=== PATIENT | female | born 1980 | race Caucasian/White ===

== ENCOUNTER 2019-10-23 01:21 | Day surgery (SDC) | payer OTHER, SELFPAY ==
[2019-10-22 15:08] VITALS: BMI 29.7
[2019-10-23 08:49] VITALS: BP 127/63; PULSE 79; RESP 16; TEMP 36.6; O2SAT 99
[2019-10-23] MEDS: LACTATED RINGERS 1,000 ML 30 ML IV CONT (08:55)
--- NOTE | 2019-10-23 08:57 | WPDANESEPPF ---
Anes - Initial Pre Proc Eval Procedure: Operation Date: 10/23/19 10:00 Proposed Procedures p Suction Dilation And Curettage - Mark Lund MD Date/Time: 10/23/19 08:57 Surgeon: Mark Lund MD Pre Op Diagnosis: Missed AB Patient Data Age: 39 Gender: F Height: 5 ft 4 in Weight: 78 kg Allergies Allergy/AdvReac Type Severity Reaction Status Date / Time No Known Allergies Allergy Verified 10/23/19 08:29 Home Medications Medication Instructions Recorded Confirmed Type diphenhydramine HCl [Benadryl] 25 mg PO DIRECTED PRN 10/22/19 10/23/19 History multivitamin 1 tablet PO DAILY PRN 10/22/19 10/23/19 History omeprazole 20 mg PO DAILY 10/22/19 10/23/19 History promethazine 12.5 mg PO Q6H PRN 10/23/19 10/23/19 History Patient hx anesthesia problems: none Family hx anesthesia problems: none PMFSH Past Medical History Medical History Anxiety GERD (gastroesophageal reflux disease) Hx of migraines Anes - Eval Final PreProcedure Day of Procedure 10/23/19 08:57 Patient weight: overweight Lungs: clear to auscultation Airway: Mallampati scale class II Neurological: alert and oriented Last oral intake: >/= 8 hours ASA classification: II Emergent: no Anesthetic plan: proceed Anesthesia type and monitoring: general GIVS and standard monitoring Informed Consent: The patient's anesthetic plan and its attendant risks and benefits were discussed with the patient/family/POA. Questions were solicited and answers provided to the satisfaction of the patient/family/POA.
--- NOTE | 2019-10-23 09:35 | P.HP_ITS ---
H&P: HPI History of Present Illness Chief complaint: Missed AB Narrative: 39 y/o with poor embryo growth and no FHR on ultrasound despite hcg level 35,000. No vaginal bleeding. Desires surgical intervention. Review of Systems Review of Systems: All systems reviewed & are unremarkable except as noted in HPI and below [facility] Past Medical History Medical History Anxiety GERD (gastroesophageal reflux disease) Hx of migraines Meds Home Medications and Allergies Home Medications Medication Instructions Recorded Confirmed Type diphenhydramine HCl [Benadryl] 25 mg PO DIRECTED PRN 10/22/19 10/23/19 History multivitamin 1 tablet PO DAILY PRN 10/22/19 10/23/19 History omeprazole 20 mg PO DAILY 10/22/19 10/23/19 History promethazine 12.5 mg PO Q6H PRN 10/23/19 10/23/19 History Allergies Allergy/AdvReac Type Severity Reaction Status Date / Time No Known Allergies Allergy Verified 10/23/19 08:29 Vital Signs Vital Signs - 24 hr 10/23/19 08:49 Temperature 36.6 C Pulse Rate 79 Respiratory Rate 16 Blood Pressure 127/63 Pulse Oximetry 99 Exam Const: General: comfortable and no acute distress Neck: Neck: supple Thyroid: thyroid normal Resp: Effort & Inspection: normal respiratory effort Auscultation: clear to auscultation bilaterally Cardio: Rate: regular rate Rhythm: regular rhythm GI: GI Palp: Yes Soft to palpation Other: nontender, nondistended : Other: Deferred to OR Skin: General skin exam: normal color and no rashes or lesions noted Extrem: Other: Nontender, no edema Assessment and Plan Assessment and plan (1) Missed : Code(s): O02.1 - Missed Status: Acute Assessment and Plan: Offered expectant mangement vs. surgical management. She desires the latter. She understands risks of surgery to include risks of anesthesia, risks of pain, infection, bleeding, blood products, thromboembolic phenomena and damage to adjacent structures such as bowel, bladder, ureters, blood vessels and nerves. She understands all these risks and elects to proceed with suction D&C.
--- NOTE | 2019-10-23 10:48 | PM.PROC ---
Procedure Note - Detailed Date of procedure: 10/23/19 Pre-op diagnosis: Missed AB Procedure performed: Dilation and suction curettage Description of procedure: The patient was taken to the operating room where she was prepared and draped in the usual sterile fashion in the dorsal lithotomy position. A sterile speculum was placed into the vagina. The anterior lip of the cervix was grasped with single-tooth tenaculum. Ten mL of 1% lidocaine was administered in a paracervical block. The cervix was then gently dilated using Hegar dilators until a 7 mm dilator could be passed. The 7 mm curved tip suction curette was passed and products of conception were aspirated. Sharp curettage was then performed, and a final pass was made with the suction curette. Hemostasis was excellent. Sponge, lap, needle and instrument counts were correct. The patient was awakened and taken to the recovery room in stable condition. I was present and scrubbed through the entire procedure. Implants: None Anesthesia: MAC and local (paracervical block) Surgeon: Mark Lund MD Estimated blood loss (mL): 40 Drains: No Packing: No Pathology: yes (endometrial curettings) Complications: None Condition: stable Disposition: PACU Findings: Products of conception noted.
[2019-10-23 10:53] VITALS: BP 129/71; PULSE 97; RESP 16; O2SAT 100
[2019-10-23 11:20] VITALS: BP 117/60; PULSE 78; RESP 16; O2SAT 100
[2019-10-23 11:50] VITALS: BP 107/50; PULSE 60; RESP 16
== END 2019-10-23 12:15 | disposition home or self-care (01) ==
PROVIDERS: PCP Nurse Practitioner Family; Visit Provider Obstetrics & Gynecology
PROC: (CPT 59820; principal; 2019-10-23 10:00)
DX: O02.1 Missed abortion (principal); K21.9 Gastro-esophageal reflux disease without esophagitis; F41.9 Anxiety disorder, unspecified
CPT/HCPCS: 59820; 88305; A9270; J0131; J1100; J1885; J2250; J2405; J2704; J3010; J7120

== ENCOUNTER 2020-08-21 01:27 | Outpatient (CLI) | payer OTHER, SELFPAY ==
[2020-08-22 01:24] LABS: SARS-CoV-2 RNA PCR Negative
== END 2020-08-21 01:28 | disposition home or self-care (01) ==
LOC: ANHCOVIDDT 01:27
PROVIDERS: PCP Nurse Practitioner Family; Visit Provider Obstetrics & Gynecology
DX: Z01.812 Encounter for preprocedural laboratory examination (principal); Z20.828 Contact with and (suspected) exposure to other viral communicable diseases
CPT/HCPCS: 87635; C9803; U0003

== ENCOUNTER 2020-08-24 01:58 | Day surgery (SDC) | payer OTHER, SELFPAY ==
[2020-08-19 15:57] VITALS: BMI 29.2
--- NOTE | 2020-08-23 12:27 | WPDANESEPPF ---
Anes - Initial Pre Proc Eval Procedure: Operation Date: 08/24/20 13:00 Proposed Procedures p Suction Dilatation and Curettage - Mark Lund MD Date/Time: 08/23/20 12:27 Surgeon: Mark Lund MD Pre Op Diagnosis: missed AB Patient Data Age: 40 Gender: F Height: 1.63 m Weight: 77.27 kg Allergies Allergy/AdvReac Type Severity Reaction Status Date / Time No Known Allergies Allergy Verified 08/24/20 11:25 Home Medications Medication Instructions Recorded Confirmed Type diphenhydramine HCl [Benadryl] 25 mg PO DIRECTED PRN 10/22/19 08/19/20 History multivitamin 1 tablet PO DAILY PRN 10/22/19 08/24/20 History omeprazole 20 mg PO DAILY PRN 10/22/19 08/24/20 History acetaminophen-codeine 1 tablet PO Q4H PRN 08/19/20 08/19/20 History [Tylenol-Codeine #3] aspirin [Aspirin Low Dose] 81 mg PO DAILY 08/19/20 08/19/20 History montelukast [Singulair] 10 mg PO HS 08/19/20 08/24/20 History Patient hx anesthesia problems: none Family hx anesthesia problems: none PMFSH Past Medical History Medical History (Updated 08/23/20 @ 12:27 by Jerson Avendano MD) Anxiety Depression GERD (gastroesophageal reflux disease) Hx of migraines Missed Social History Social History Smoking packs per day: 0.5 Smoking cigarettes per day: 10.0 Years smoked: 15 Smoking pack-years: 7.50 Smoking status: Former smoker Tobacco type: cigarettes Additional smoking assessment comments: STATES 1/2PK/DAY/15YRS QUIT 2009 Substance use type: does not use Living arrangements: with family Spiritual care concerns: No Anes - Eval Final PreProcedure Day of Procedure 08/23/20 12:27 Patient weight: overweight Heart: regular rate and rhythm Lungs: clear to auscultation and normal air movement Airway: Mallampati scale class II Neurological: alert and oriented Last oral intake: >/= 8 hours ASA classification: II Emergent: no Anesthetic plan: proceed Anesthesia type and monitoring: general GIVS Informed Consent: The patient's anesthetic plan and its attendant risks and benefits were discussed with the patient/family/POA. Questions were solicited and answers provided to the satisfaction of the patient/family/POA.
[2020-08-24 11:20] VITALS: BP 121/77; PULSE 86; RESP 20; TEMP 36.9; O2SAT 100
[2020-08-24] MEDS: ACETAMINOPHEN 500 MG TABLET 1000 MG PO (11:31)
[2020-08-24] MEDS: LACTATED RINGERS 1,000 ML 30 ML IV CONT (12:20)
[2020-08-24] MEDS: KETOROLAC 30 MG/ML VIAL (*BKC) IV PUSH (12:24)
--- NOTE | 2020-08-24 12:47 | PM.IMHP ---
H&P: HPI History of Present Illness Date/Time: 08/24/20 12:47 Chief Complaint: Miscarriage Narrative: 40 y/o G 12 [id number] at 10 w 3 days gestation with ultrasound exam last week demonstrating in intrauterine gestation with no obvious embryo. No vaginal bleeding. Blood type Opos. She has had six prior miscarriages. Her last SAB lead to a D&C which demonstrated 48,XX,+8,+15. She declines karyotyping on pathology specimen today. She is here for a D&C. Review of Systems Review of Systems: All systems reviewed & are unremarkable except as noted in HPI and below PMFSH Past Medical History Medical History (Updated 08/24/20 @ 12:54 by Mark Lund MD) Anxiety Depression GERD (gastroesophageal reflux disease) Hx of migraines Missed Surgical History Surgical History History of dilatation and curettage Social History Social History Smoking packs per day: 0.5 Smoking cigarettes per day: 10.0 Years smoked: 15 Smoking pack-years: 7.50 Smoking status: Former smoker Tobacco type: cigarettes Additional smoking assessment comments: STATES 1/2PK/DAY/15YRS QUIT 2009 Substance use type: does not use Living arrangements: with family Spiritual care concerns: No Meds Home Medications and Allergies Home Medications Medication Instructions Recorded Confirmed Type diphenhydramine HCl [Benadryl] 25 mg PO DIRECTED PRN 10/22/19 08/19/20 History multivitamin 1 tablet PO DAILY PRN 10/22/19 08/24/20 History omeprazole 20 mg PO DAILY PRN 10/22/19 08/24/20 History acetaminophen-codeine 1 tablet PO Q4H PRN 08/19/20 08/19/20 History [Tylenol-Codeine #3] aspirin [Aspirin Low Dose] 81 mg PO DAILY 08/19/20 08/19/20 History montelukast [Singulair] 10 mg PO HS 08/19/20 08/24/20 History Allergies Allergy/AdvReac Type Severity Reaction Status Date / Time No Known Allergies Allergy Verified 08/24/20 11:25 Vital Signs Vital Signs - 24 hr 08/24/20 11:20 Temperature 36.9 C Pulse Rate 86 Respiratory Rate 20 Blood Pressure 121/77 Pulse Oximetry 100 Exam Const: Orientation/consciousness: patient oriented x3 Other: Well-developed, well-nourished female in no acute distress. Neck: Thyroid: thyroid normal Lymphatic: no lymphadenopathy noted (in neck, axilla or inguinal nodes) Resp: Effort & Inspection: normal respiratory effort Auscultation: clear to auscultation bilaterally Cardio: Rate: regular rate Rhythm: regular rhythm Heart sounds: S1 normal heart sound present and S2 normal heart sound present GI: Other: ABD: Soft, nontender, nondistended. No guarding or rebound tenderness. No hepatosplenomegaly. : General: Yes no CVA tenderness Other: External genitalia: normal female hair distribution, without lesion. Urethral meatus: no lesion, non prolapsed. Bladder: no mass, nontender Vagina: well-estrogenized, without lesion or discharge. No cystocele or rectocele. Cervix: no lesion or discharge. Uterus: small, anteverted, freely mobile, nontender Adnexa: no mass or tenderness. Anus/perineum: no lesions, nontender Back/Spine/Pelvis: Back: no CVA tenderness Skin: General skin exam: normal color and no rashes or lesions noted Neuro: General: patient oriented x3 Extrem: Other: Extremities: nontender with no edema Psych: Mental Status: mental status grossly normal Affect: normal affect Assessment and Plan Assessment and plan (1) Missed : Code(s): O02.1 - Missed Status: Acute (2) History of recurrent miscarriages: Code(s): N96 - Recurrent loss Status: Acute Assessment and Plan: Offered expectant management versus surgical management. She opts for suction dilation and curettage. She understands risks of surgery to include risks of anesthesia, risks of pain, infection, bleeding, blood products, thromboemboli
--- NOTE | 2020-08-24 12:55 | WPDHPUPDATE1 ---
History and Physical Update Update Date/Time: 08/24/20 12:55 History and Physical has been reviewed, including an updated exam of the patient. There are NO changes in the patient's condition. Risks, benefits, and alternatives have been discussed and questions answered. Patient agrees to proceed with procedure.
[2020-08-24] MEDS: LIDOCAINE HCL 1% LOCAL INJ 20 ML VIAL 10 ML INFILTRATE (13:23)
--- NOTE | 2020-08-24 13:31 | PM.PROC ---
Procedure Note - Detailed Date of procedure: 08/24/20 Pre-op diagnosis: missed AB Post-op diagnosis: same Procedure performed: Dilation and suction curettage Description of procedure: The patient was taken to the operating room where she was prepared and draped in the usual sterile fashion in the dorsal lithotomy position. The bladder was drained with a red rubber catheter. A sterile speculum was placed into the vagina. The anterior lip of the cervix was grasped with a single-tooth tenaculum. Ten mL of 1% lidocaine was administered in a paracervical block. The cervix was gently dilated using Hegar dilators until an 8mm dilator could be passed. The 8mm curved tip suction curette was advanced. Suction curettage was performed and products of conception were aspirated. Sharp curettage was then performed until a good uterine cry was noted. A final pass with the suction curette was made. The tenaculum was removed. Hemostasis was excellent. Sponge, lap, needle and instrument counts were correct. The patient was taken to the recovery room in stable condition. I was present and scrubbed for the entire procedure. Implants: None Anesthesia: MAC and local (1% lidocaine) Surgeon: Mark Lund MD Estimated blood loss (mL): 50 Drains: No Packing: No Pathology: yes (endometrial curettings) Complications: None Condition: stable Disposition: PACU Findings: Products of conception
[2020-08-24 13:35] VITALS: BP 129/66; PULSE 95; RESP 20; O2SAT 97
[2020-08-24] MEDS: oxyCODONE HCL (*CRX) 5 MG TAB IR PO (13:55)
[2020-08-24 14:05] VITALS: BP 129/74; PULSE 70; RESP 20
[2020-08-24] MEDS: fentaNYL CITRATE INJ (*CRX) 100 MCG/2 ML VIAL 25 MCG IV PUSH ×2 (14:32→14:42)
[2020-08-24 14:35] VITALS: BP 127/73; PULSE 67; RESP 14
[2020-08-24 15:00] VITALS: BP 133/67; PULSE 59; RESP 20
== END 2020-08-24 15:09 | disposition home or self-care (01) ==
PROVIDERS: PCP Nurse Practitioner Family; Visit Provider Obstetrics & Gynecology
PROC: (CPT 59820; principal; 2020-08-24 13:00)
DX: O02.1 Missed abortion (principal); N96 Recurrent pregnancy loss; F41.8 Other specified anxiety disorders; K21.9 Gastro-esophageal reflux disease without esophagitis; Z87.891 Personal history of nicotine dependence
CPT/HCPCS: 59820; 88305; A9270; J1100; J1885; J2250; J2405; J2704; J3010; J7120

== ENCOUNTER → 2021-08-06 00:56 | Outpatient (CLI) | payer OTHER, SELFPAY ==
[2021-08-06 18:54] LABS: SARS-CoV-2 RNA PCR Negative
== END ==
PROVIDERS: PCP Nurse Practitioner Family; Visit Provider Obstetrics & Gynecology
DX: Z01.812 Encounter for preprocedural laboratory examination (principal); Z20.822 Contact with and (suspected) exposure to COVID-19
CPT/HCPCS: C9803; U0003; U0005

== ENCOUNTER 2021-08-10 01:34 | Day surgery (SDC) | payer OTHER, SELFPAY ==
[2021-07-27 11:17] VITALS: BMI 29.2
--- NOTE | 2021-07-27 11:31 | PC.NURSE ---
Report to the Outpatient Waiting Room, entrance under the green pavilion located off [facility], at time 11:30 on date 08/10/21. OR Time: 1:30. - You and your visitor will be asked a series of questions to screen for COVID 19 for your protection. - A mask is required within the hospital. - Only one visitor is allowed at this time. Patient visitors will be guided where to wait when not with patient. Preoperative COVID Testing Requirements: No COVID Test needed if: (proof is required; if not received patient will have Rapid Test prior to entry) - Patient has received COVID Vaccine at least 14 days prior to procedure date or - Patient has positive COVID test result within last 90 days of surgery date. COVID Test needed if above criteria is not met If not COVID vaccinated a COVID test must be conducted within 72 hours of surgery and patient is asked to isolate self from time of testing until procedure. You will go to the [facility] for your COVID testing. The [facility] is located at the corner of [address] [facility]. COVID TEST 08/06 AT 9:35 You will only be called if COVID results are positive and your surgeon may reschedule your elective surgery date. Patients may have clear liquids (water, carbonated beverages, clear teas, apple juice) until 3 hours prior to surgery with a maximum of 20 ounces. - No food from midnight until time of surgery - Infants may have breast milk until 4 hours before surgery, infant formula 6 hours prior to surgery. - Children will be allowed to drink immediately following surgery. If applicable, please bring a bottle or sippy cup to assist with drinking. Juice, water, soda, and popsicles are readily available. For infants on formula, please bring formula the day of surgery. Pacifiers are allowed. Take the following medications with a SIP of water the morning of surgery: PAIN PILL (IF NEEDED) Medications to discontinue per physician: N/A Date to take last dose: N/A Please no make-up, nail uzbek, hairspray, perfume, deodorant, or body powder the day of surgery. No jewelry (including any body piercings) or valuables the day of surgery, leave them at home. Please take a shower or bath the night before, or the morning of, surgery with an antibacterial soap. Wear comfortable, loose fitting clothing. Children are encouraged to wear pajamas. - Jewelry must be removed prior to entering the operating room. Rings and piercings that are not removed may be cut off. - The hospital will not accept responsibility for valuables. - Please leave all valuables, including medications, at home the day of surgery. If you are going home after surgery, a licensed route sales delivery driver must drive you home. - NO public transportation without another adult. - We recommend that an adult stay with you for 24 hours following discharge. - We also recommend that you do not drive, make important decision, drink alcoholic beverages, or take any drugs that were not prescribed by your health care provider for at least 24 hours after your discharge time. For Pediatric surgeries, we recommend two adults accompany the child home (only one inside the building at this time). Follow any additional instructions given to you from your surgeon. Telephone instructions given to CASSIDY REYES and asked if any additional questions and then verbalized understanding. Patient advised to call surgeon office or pre surgery nurse liaison [phone] if any additional questions.
[2021-08-10] VITALS (15 sets, daily range): BP systolic 120–155; BP diastolic 61–86; PULSE 62–92; RESP 10–20; TEMP 36.3–36.6; O2SAT 91–100
--- NOTE | 2021-08-10 12:17 | PM.IMHP ---
H&P: HPI History of Present Illness Date/Time: 08/10/21 12:17 41 y/o with a fibroid uterus and painful menses. She does not desire any future childbearing. Ultrasound exam shows uterine myomata, the largest measuring 3 cm in greatest dimension. She has tried medical management, but continues to have painful menses. She desires definitive management with hysterectomy. Chief Complaint: Here for hysterectomy Review of Systems Review of Systems: All systems reviewed & are unremarkable except as noted in HPI and below PMFSH Past Medical History Medical History Anxiety Depression GERD (gastroesophageal reflux disease) Hx of migraines Missed Surgical History Surgical History History of dilatation and curettage Social History Social History Smoking packs per day: 0.5 Smoking cigarettes per day: 10.0 Years smoked: 15 Smoking pack-years: 7.50 Smoking status: Former smoker Tobacco type: cigarettes Smoking end date: 09/03/08 Additional smoking assessment comments: STATES 1/2PK/DAY/15YRS QUIT 2009 Alcohol intake: current Drinks per week: 5 Substance use: never Substance use type: does not use Living arrangements: with family Spiritual care concerns: No Meds Home Medications and Allergies Home Medications Medication Instructions Recorded Confirmed Type diphenhydramine HCl [Benadryl] 25 mg PO DIRECTED PRN 10/22/19 08/10/21 History acetaminophen-codeine 1 tablet PO Q4H PRN 08/19/20 08/10/21 History [Tylenol-Codeine #3] montelukast [Singulair] 10 mg PO HS 08/19/20 08/10/21 History hydrocodone-ibuprofen 1 tablet PO Q6H PRN 07/27/21 08/10/21 History Allergies Allergy/AdvReac Type Severity Reaction Status Date / Time No Known Allergies Allergy Verified 08/10/21 11:36 Exam Const: Orientation/consciousness: patient oriented x3 Other: Well-developed, well-nourished female in no acute distress. Neck: Thyroid: thyroid normal Lymphatic: no lymphadenopathy noted (in neck, axilla or inguinal nodes) Resp: Effort & Inspection: normal respiratory effort Auscultation: clear to auscultation bilaterally Cardio: Rate: regular rate Rhythm: regular rhythm Heart sounds: S1 normal heart sound present and S2 normal heart sound present GI: Other: ABD: Soft, nontender, nondistended. No guarding or rebound tenderness. No hepatosplenomegaly. : General: Yes no CVA tenderness Other: External genitalia: normal female hair distribution, without lesion. Urethral meatus: no lesion, non prolapsed. Bladder: no mass, nontender Vagina: well-estrogenized, without lesion or discharge. No cystocele or rectocele. Cervix: no lesion or discharge. Uterus: small, anteverted, freely mobile, nontender Adnexa: no mass or tenderness. Anus/perineum: no lesions, nontender Back/Spine/Pelvis: Back: no CVA tenderness Skin: General skin exam: normal color and no rashes or lesions noted Neuro: General: patient oriented x3 Extrem: Other: Extremities: nontender with no edema Psych: Mental Status: mental status grossly normal Affect: normal affect Assessment and Plan Assessment and plan (1) Fibroid uterus: Code(s): D25.9 - Leiomyoma of uterus, unspecified Status: Acute Assessment and Plan: A: Persistent dysmenorrhea in the setting of a fibroid uterus, refractory to medical management. P: We reviewed medical as well as surgical management options. She prefers definitive management with hysterectomy. Specifically, I have offered her a total vaginal hysterectomy with bilateral salpingectomies. We plan to leave the ovaries in situ. She understands that hysterectomy will render her permanently sterile. She understands risks of surgery to include risks of anesthesia, risks of pain, infection, bleeding, blood p
--- NOTE | 2021-08-10 12:21 | WPDHPUPDATE1 ---
History and Physical Update Update Date/Time: 08/10/21 12:21 History and Physical has been reviewed, including an updated exam of the patient. There are NO changes in the patient's condition. Risks, benefits, and alternatives have been discussed and questions answered. Patient agrees to proceed with procedure.
[2021-08-10] MEDS: ACETAMINOPHEN 500 MG TABLET 1000 MG PO (12:44)
[2021-08-10] MEDS: fentaNYL CITRATE INJ (*CRX) 100 MCG/2 ML VIAL 50 MCG IV PUSH (12:44)
[2021-08-10] MEDS: KETOROLAC 15 MG/ML VIAL (*BKC) IV PUSH (12:45)
[2021-08-10] MEDS: LACTATED RINGERS 1,000 ML 30 ML IV CONT ×2 (12:45→15:37)
--- NOTE | 2021-08-10 12:45 | P.PNAN_ITS ---
Anes - Initial Pre Proc Eval Procedure: Operation Date: 08/10/21 13:30 Proposed Procedures p Total Vaginal Hysterectomy with Bilateral Salpingectomy - Mark Lund MD Date/Time: 08/10/21 12:45 Surgeon: Mark Lund MD Pre Op Diagnosis: pain, fibroids, enlg uterus, dyspareunia Patient Data Age: 41 Gender: F Height: 1.63 m Weight: 79.9 kg Allergies Allergy/AdvReac Type Severity Reaction Status Date / Time No Known Allergies Allergy Verified 08/10/21 11:36 Home Medications Medication Instructions Recorded Confirmed Type diphenhydramine HCl [Benadryl] 25 mg PO DIRECTED PRN 10/22/19 08/10/21 History acetaminophen-codeine 1 tablet PO Q4H PRN 08/19/20 08/10/21 History [Tylenol-Codeine #3] montelukast [Singulair] 10 mg PO HS 08/19/20 08/10/21 History hydrocodone-ibuprofen 1 tablet PO Q6H PRN 07/27/21 08/10/21 History Patient hx anesthesia problems: none Family hx anesthesia problems: none Results Review: All pre-operative results and documents have been reviewed as part of the pre-operative evaluation. [facility] Past Medical History Medical History Anxiety Depression GERD (gastroesophageal reflux disease) Hx of migraines Missed Surgical History Surgical History History of dilatation and curettage Social History Social History Smoking packs per day: 0.5 Smoking cigarettes per day: 10.0 Years smoked: 15 Smoking pack-years: 7.50 Smoking status: Former smoker Tobacco type: cigarettes Smoking end date: 09/03/08 Additional smoking assessment comments: STATES 1/2PK/DAY/15YRS QUIT 2009 Alcohol intake: current Drinks per week: 5 Substance use: never Substance use type: does not use Living arrangements: with family Spiritual care concerns: No Anes - Eval Final PreProcedure Day of Procedure 08/10/21 12:45 Patient weight: obese Heart: regular rate and rhythm Lungs: clear to auscultation and normal air movement Airway: Mallampati scale class II Neurological: alert and oriented Last oral intake: >/= 8 hours ASA classification: II Emergent: no Anesthetic plan: proceed Anesthesia type and monitoring: general ETT and standard monitoring Results Review: All pre-operative results and documents have been reviewed as part of the pre-operative evaluation. Informed Consent: The patient's anesthetic plan and its attendant risks and benefits were discussed with the patient/family/POA. Questions were solicited and answers provided to the satisfaction of the patient/family/POA.
--- NOTE | 2021-08-10 13:48 | SUR.PREOP ---
1340 informed pt delay in procedure.
[2021-08-10] MEDS: ceFAZolin 2 GM/D5W 50 ML 2 GM/50 ML BAG IVPB (14:38)
[2021-08-10] MEDS: fentaNYL CITRATE INJ (*CRX) 100 MCG/2 ML VIAL 25 MCG IV PUSH ×8 (15:47→16:13)
--- NOTE | 2021-08-10 15:49 | P.OP_ITS ---
Procedure Note - Detailed Date of Procedure 08/10/21 Pre-op Diagnosis Dysmenorrhea Fibroid uterus Post-op Diagnosis same Procedure Performed Total vaginal hysterectomy with bilateral salpingectomies Surgeon Mark Lund MD Anesthesia general Findings Enlarged uterus. Normal-appearing tubes and ovaries. Description of Procedure The patient was taken to the operating room where she was prepared and draped in the usual sterile fashion in the dorsal lithotomy position. The bladder was drained with red rubber catheter. A weighted speculum was placed posteriorly. A Michael retractor was used anteriorly. The cervix was grasped with a single- tooth tenaculum. Ten mL of sterile saline was infiltrated circumferentially around the cervix to aid in tissue plane dissection. The cervix was circumscribed using electrocautery. The peritoneal cavity was entered sharply posteriorly and a long weighted speculum was placed. The uterosacral and cardinal ligaments on both sides were then clamped, transected and suture ligated using 0 Vicryl. These were tagged for later identification. The bladder was dissected off the cervix and lower uterine segment and reflected away. The LigaSure device was then used to clamp, ligate and transect the broad ligaments bilaterally. Finally, the utero-ovarian ligament, round ligament and tube complexes on both sides were able to be clamped, transected and suture ligated using 0 Vicryl. The specimen was passed off to be sent to pathology. The bilateral fallopian tubes were then dissected, clamped, ligated and transected using the LigaSure device and passed off the field. The pedicles were inspected and found to be hemostatic. The vaginal cuff angles were then transfixed to the ipsilateral cardinal uterosacral ligaments for support. The vaginal cuff was reapproximated using 0 Vicryl in a running, locked fashion. Hemostasis was excellent. A Martinez catheter was placed. Vaginal packing soaked in Premarin cream was placed. Sponge, lap, needle and instrument counts were correct. The patient was awakened and taken to the recovery room in stable condition. I was present and scrubbed for the entire procedure. Implants None Estimated Blood Loss 50.0 Drains Yes (martinez) Packing Yes (vaginal) Pathology yes (Uterus, cervix, bilateral Fallopian tubes) Complications None Condition stable Disposition PACU
[2021-08-10] MEDS: diphenhydrAMINE HCl INJ 50 MG/ML VIAL 25 MG IV PUSH (15:51)
[2021-08-10] MEDS: HYDROmorphone HCL INJ (*CRX) 1 MG/ML SYR IV PUSH ×4 (16:15→17:00)
--- NOTE | 2021-08-10 16:42 | PM.DS ---
DS: Admitting Diagnosis Discharge Date 08/11/21 Admitting Diagnosis Dysmenorrhea Fibroid uterus DS: Discharge Diagnosis Discharge Diagnosis (1) Pelvic pain: Code(s): R10.2 - Pelvic and perineal pain Status: Acute (2) Dysmenorrhea: Code(s): N94.6 - Dysmenorrhea, unspecified Status: Acute (3) Fibroid uterus: Code(s): D25.9 - Leiomyoma of uterus, unspecified Status: Acute DS: Summary Hospital Course Hospital Course: She was admitted to the hospital on the date of scheduled surgery. Please see op note for details. Postoperatively she did well. She was able to go home on POD#1. Time Spent with Patient Time attestation: Total time spent providing and/or coordinating discharge services: DS: Data Data Completed and Pending Pending studies at discharge: Pending at discharge 08/10/21 15:35 Surgical [PTH] Routine Labs on day of discharge: Labs from last 24 hours 08/10/21 12:12 Blood Type O Positive Antibody Screen Negative Discharge Plan Discharge Patient Disposition: Home, Self-Care Discharge Instructions: Call or return if temperature above 100.4? F, increased abdominal pain, increased vaginal bleeding or any new problems. Patient Instructions: Vaginal Hysterectomy (DC) Stand Alone Forms: General Discharge Instructions Follow-up/Referrals: Mark Lund MD [Physician] - 4 Weeks Discharge Medications: New hydrocodone-acetaminophen 5-325 mg tablet 1 - 2 tablet PO Q6H PRN (Reason: pain) Qty: 30 RF: 0 Continued diphenhydramine HCl [Benadryl] 25 mg Capsule 25 mg PO DIRECTED PRN (Reason: Allergy Symptoms) RF: 0 montelukast [Singulair] 10 mg Tablet 10 mg PO HS RF: 0 Discontinued acetaminophen-codeine [Tylenol-Codeine #3] 300-30 mg Tablet 1 tablet PO Q4H PRN (Reason: Pain) RF: 0 hydrocodone-ibuprofen 7.5-200 mg tablet 1 tablet PO Q6H PRN (Reason: Pain) RF: 0 Other Ambulatory Orders: Type and Screen 14 Day (Routine) Timeframe: 2 Months Location: Determined by Patient Ordered By: Mark Lund
--- NOTE | 2021-08-10 17:41 | PC.NURSE ---
This patient, Juanita Collins, was received from PACU via stretcher on 08/10/21 at 1757. Patient/family oriented to unit policies and routines
[2021-08-10] MEDS: KETOROLAC 30 MG/ML VIAL (*BKC) IV PUSH (19:48)
[2021-08-10] MEDS: ONDANSETRON INJ 4 MG/2 ML VIAL IV PUSH (19:53)
[2021-08-10] MEDS: MONTELUKAST SODIUM 10 MG TABLET PO (20:50)
[2021-08-10] MEDS: DOCUSATE SODIUM 100 MG CAPSULE PO (20:50)
[2021-08-10] MEDS: ENOXAPARIN 40 MG/0.4 ML SYRINGE SUB-Q (20:51)
[2021-08-10] MEDS: HYDROcodone/acetaminophen (*CRX) 10-325 MG TABLET 1 TAB PO (20:55)
[2021-08-10] MEDS: MORPHINE SULFATE (*CRX) 4 MG/ML INJ IV PUSH (23:32)
[2021-08-11] MEDS: HYDROcodone/acetaminophen (*CRX) 10-325 MG TABLET 1 TAB PO ×3 (01:46→08:33)
[2021-08-11] MEDS: SIMETHICONE 80 MG TAB.CHEW PO ×3 (01:48→08:33)
[2021-08-11 05:35] VITALS: BP 124/79; PULSE 100; RESP 16; TEMP 37.3; O2SAT 99
[2021-08-11 05:55] LABS: Basophils Percent Auto 0.2 % (0.2-1.2); Hematocrit 33.7 % (37.0-47.0); Immature Granulocyte Absolute 0.03 K/mm3 (0.00-0.031); Immature Granulocyte Percent A 0.3 % (0-0.5); Lymphocytes Absolute Auto 1.55 K/mm3 (0.9-3.2); Lymphocytes Percent Auto 13.4 % (18.3-44.2); Mean Corpuscular HGB Conc 35.6 g/dl (32-36); Mean Corpuscular Hemoglobin 34.2 pg (26-34); Mean Platelet Volume 9.6 fl (7.4-10.4); Monocytes Absolute Auto 0.7 K/mm3 (0.1-0.6); Monocytes Percent Auto 5.8 % (2.6-8.5); Neutrophils Absolute Auto 9.3 K/mm3 (1.3-6.7); Neutrophils Percent Auto 80.3 % (45.5-73.1); Platelet Count Result 280 k/mm3 (150-375); Red Blood Count 3.51 M/mm3 (4.2-5.4); Red Cell Distribution Width 11.6 % (11.5-14.5); White Blood Count 11.5 K/mm3 (4.5-10.0)
[2021-08-11 07:40] VITALS: BP 108/63; PULSE 76; RESP 18; TEMP 36.6; O2SAT 99
[2021-08-11] MEDS: IBUPROFEN 600 MG TABLET PO (08:33)
[2021-08-11] MEDS: DOCUSATE SODIUM 100 MG CAPSULE PO (08:33)
--- NOTE | 2021-08-11 09:05 | PM.GYNPNOP ---
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 Tolerating diet. Voiding. Would like to go home. Exam Narrative: AVSS I/O OK ABD soft, nontender. Incisions c/d/i. 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 - PN: Obj Data Vital Signs Vital Signs: Vital Signs - 24 hr 08/10/21 11:36 08/10/21 15:37 08/10/21 15:50 Temperature 36.6 C 36.6 C Pulse Rate 74 72 64 Respiratory Rate 20 10 L 12 Blood Pressure 146/76 H 123/61 155/81 H Pulse Oximetry 100 100 100 08/10/21 16:05 08/10/21 16:20 08/10/21 16:35 Temperature Pulse Rate 63 64 65 Respiratory Rate 12 12 12 Blood Pressure 137/80 134/74 144/85 H Pulse Oximetry 100 100 97 08/10/21 16:50 08/10/21 17:05 08/10/21 17:20 Temperature Pulse Rate 62 74 78 Respiratory Rate 12 12 12 Blood Pressure 147/79 H 130/81 120/71 Pulse Oximetry 100 98 91 08/10/21 17:30 08/10/21 17:50 08/10/21 20:05 Temperature 36.3 C L 36.4 C L Pulse Rate 64 77 92 Respiratory Rate 12 18 16 Blood Pressure 136/76 145/83 H 138/86 Pulse Oximetry 100 99 97 08/10/21 20:50 08/10/21 23:34 08/10/21 23:52 Temperature 36.6 C Pulse Rate 84 84 Respiratory Rate 16 16 Blood Pressure 145/75 H Pulse Oximetry 97 98 98 08/11/21 05:35 Temperature 37.3 C Pulse Rate 100 Respiratory Rate 16 Blood Pressure 124/79 Pulse Oximetry 99 Intake/Output Intake/Output: Intake & Output 08/08/21 08/09/21 08/10/21 08/11/21 23:59 23:59 23:59 23:59 Intake Total 1290 700 Output Total 375 1850 Balance 915 -1150 Meds/Results Medications: Active Medications Generic Name Dose Route Start Last Admin Trade Name Freq PRN Reason Stop Dose Admin Hydrocodone Bitart/Acetaminophen 1 tab 08/10/21 17:31 Hydrocodone/Acetaminophen (*Crx) 5-325 Mg Tablet PO Q3H PRN Pain Rated 5 or Less Hydrocodone Bitart/Acetaminophen 1 tab 08/10/21 17:31 08/11/21 08:33 Hydrocodone/Acetaminophen (*Crx) 10-325 Mg Tablet PO 1 tab Q3H PRN Administration Pain Rated 6 or Greater Docusate Sodium 100 mg 08/10/21 17:31 08/11/21 08:33 Docusate Sodium 100 Mg Capsule PO 100 mg BID YAQUELIN Administration Enoxaparin Sodium 40 mg 08/10/21 21:00 08/10/21 20:51 Enoxaparin 40 Mg/0.4 Ml Syringe SUB-Q 40 mg Q24H YAQUELIN Administration Dextrose/Sodium Chloride 1,000 mls @ 125 mls/hr 08/10/21 17:31 08/11/21 04:32 Dextrose 5% Sodium Chloride 0.45% IV CONT Not Given .Q8H YAQUELIN Ibuprofen 600 mg 08/10/21 17:31 08/11/21 08:33 Ibuprofen 600 Mg Tablet PO 600 mg Q6H PRN Administration Cramping Ketorolac Tromethamine 30 mg 08/10/21 17:31 08/10/21 19:48 Ketorolac 30 Mg/Ml Vial (*Bkc) IV PUSH 08/15/21 17:30 30 mg Q6H PRN Administration Pain Rated 4-6 Montelukast Sodium 10 mg 08/10/21 21:00 08/10/21 20:50 Montelukast Sodium 10 Mg Tablet PO 10 mg HS YAQUELIN Administration Morphine Sulfate 4 mg 08/10/21 17:31 08/10/21 23:32 Morphine Sulfate (*Crx) 4 Mg/Ml Inj IV PUSH 4 mg Q4H PRN Administration Severe breakthrough pain Naloxone HCl 0.1 mg 08/10/21 17:31 Naloxone Hcl 0.4 Mg/Ml Vial IV PUSH Q2M PRN Respiratory rate less than 10 Ondansetron HCl 4 mg 08/10/21 17:31 08/10/21 19:53 Ondansetron Inj 4 Mg/2 Ml Vial IV PUSH 4 mg Q6H PRN Administration Nausea And Vomiting Simethicone 80 mg 08/10/21 17:31 08/11/21 08:33 Simethicone 80 Mg Tab.Chew PO 80 mg Q2H PRN Administration Gas Labs CBC & Chem 7: 08/11/21 05:44 Labs: Laboratory Results - last 24 hr 08/10/21 08/11/21 12:12 05:44 WBC 11.5 H RBC 3.51 L Hgb 12.0 Hct 33
== END 2021-08-11 10:40 | disposition home or self-care (01) ==
LOC: ANHSURGERY 16:43 → ANHOB2 17:40
PROVIDERS: PCP Nurse Practitioner Family; Visit Provider Obstetrics & Gynecology
PROC: (CPT 58260; principal; 2021-08-10 13:30)
DX: N94.6 Dysmenorrhea, unspecified (principal); D25.0 Submucous leiomyoma of uterus; N80.0 Endometriosis of uterus; R10.2 Pelvic and perineal pain; Z87.891 Personal history of nicotine dependence; E66.9 Obesity, unspecified; Z68.30 Body mass index [BMI] 30.0-30.9, adult
CPT/HCPCS: 58262; 36415; 85025; 86850; 86900; 86901; 88307; 99199; A9270; C9803; J0690; J1100; J1170; J1200; J1650; J1885; J2250; J2270; J2405; J2704; J2710; J3010; J7030; J7120; U0003; U0005

== ENCOUNTER 2022-02-08 09:11 | Outpatient (CLI) | payer OTHER, SELFPAY ==
--- NOTE | ~2022-02-08 | XR_ITS ---
XR hip LT min 3V w AP pelvis DATE: 02/08/2022 09:32 INDICATION: Left hip pain TECHNIQUE: AP pelvis. AP and lateral views of left hip. COMPARISON: None FINDINGS: The pubic symphysis and sacroiliac joints are intact. No pelvic fracture or bone destructio n. Hip joint spaces are symmetric and well preserved. No fracture, dislocation, avascular necrosis or naomi ne destruction of the left hip. IMPRESSION: Negative examination Reviewed, dictated and finalized at location A. IMPRESSION: Negative examination
== END 2022-02-08 09:12 ==
PROVIDERS: PCP Nurse Practitioner Family; Visit Provider Nurse Practitioner Family
DX: M25.552 Pain in left hip (principal)
CPT/HCPCS: 73502

== ENCOUNTER 2022-06-19 10:49 | Emergency (ER) | payer OTHER, SELFPAY ==
[2022-06-19 10:51] VITALS: BP 152/91; PULSE 95; RESP 18; TEMP 36.1; O2SAT 100
--- NOTE | 2022-06-19 12:28 | ED.ANXIETY ---
HPI - Anxiety General Chief Complaint: Anxiety Stated Complaint: panic attacks Time Seen by Provider: 06/19/22 12:19 Source: patient History of Present Illness HPI narrative: 42 years old white female presents with panic attack-like symptoms, jittery inside, shaking outside, lightheadedness, hyperventilation since 5 AM. Patient could not sleep lately. 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 Patient denies suicidal or homicidal ideation. Patient denies any fever, chills, nausea, vomiting, patient does not smoke or drink or uses drugs Related Data Home Medications Medication Instructions Recorded Confirmed diphenhydramine HCl 25 mg capsule 25 mg PO DIRECTED PRN Allergy 10/22/19 08/10/21 (Benadryl) Symptoms montelukast 10 mg tablet 10 mg PO HS 08/19/20 08/10/21 (Singulair) Allergies Allergy/AdvReac Type Severity Reaction Status Date / Time No Known Allergies Allergy Verified 08/10/21 11:36 Review of Systems Review of Systems: All systems reviewed & are unremarkable except as noted in HPI and below PMFSH Past Medical History Medical History Anxiety Depression GERD (gastroesophageal reflux disease) Hx of migraines Missed Surgical History Surgical History History of dilatation and curettage Social History Social History Smoking packs per day: 0.5 Smoking cigarettes per day: 10.0 Years smoked: 15 Smoking pack-years: 7.50 Smoking status: Former smoker Tobacco type: cigarettes Smoking end date: 09/03/08 Additional smoking assessment comments: STATES 1/2PK/DAY/15YRS QUIT 2009 Alcohol intake: current Drinks per week: 5 Substance use: never Substance use type: does not use Spiritual care concerns: No Exam Narrative: General appearance: Well-developed, well-nourished, restless, shaking Skin: Normal color Head: Normocephalic, nontraumatic Eyes: Clear conjunctiva ENT: Oropharynx normal, ears normal, nose normal Neck: Supple, nontender Chest and respiratory: Airway patent, no respiratory distress, no accessory muscle use Heart: Regular rate/rhythm Abdomen: Soft, nontender, no organomegaly, quiet bowel sounds Vascular: Normal peripheral pulses, normal capillary refill. 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, no gross motor deficit Course Course Emergency Course: Anxiety-like symptoms Vital Signs Vital signs: Vital Signs Temperature 36.1 C L 06/19/22 10:51 Pulse Rate 95 06/19/22 10:51 Respiratory Rate 18 06/19/22 10:51 Blood Pressure 152/91 H 06/19/22 10:51 Pulse Oximetry 100 06/19/22 10:51 Oxygen Delivery Room Air 06/19/22 10:51 Temperature 36.1 C L 06/19/22 10:51 Pulse Rate 95 06/19/22 10:51 Respiratory Rate 18 06/19/22 10:51 Blood Pressure 152/91 H 06/19/22 10:51 Pulse Oximetry 100 06/19/22 10:51 Oxygen Delivery Room Air 06/19/22 10:51 MDM - Anxiety Differential Diagnosis Differential diagnosis: Likely hyperventilation, panic disorder and acute anxiety Critical Care Time Critical Care Time Critical Care Time: No Discharge Plan Discharge Clinical Impression: Anxiety-like symptoms Patient Disposition: Home, Self-Care Condition: Stable Instructions: Antibiotic Form, Panic Attack (ED) Addition
[2022-06-19] MEDS: LORazepam (*CRX) 0.5 MG TABLET 1 MG PO (12:44)
[2022-06-19 13:18] VITALS: BP 142/78; PULSE 78; RESP 18; O2SAT 99
== END 2022-06-19 13:19 | disposition home or self-care (01) ==
PROVIDERS: Emergency Provider Emergency Medicine; PCP Nurse Practitioner Family
DX: F41.9 Anxiety disorder, unspecified (principal); K21.9 Gastro-esophageal reflux disease without esophagitis; Z87.891 Personal history of nicotine dependence
CPT/HCPCS: 99283; A9270

== ENCOUNTER 2022-08-12 10:10 | Emergency (ER) | payer OTHER, SELFPAY ==
[2022-08-12 11:05] VITALS: BP 134/77; PULSE 105; RESP 18; TEMP 36.6; O2SAT 100
--- NOTE | 2022-08-12 11:27 | ED.EAR ---
HPI - Ear Problem General Chief complaint: Ear Stated complaint: rt earache Time Seen by Provider: 08/12/22 11:27 Source: patient, RN notes reviewed and old records reviewed Mode of arrival: ambulatory Limitations: no limitations History of Present Illness HPI Narrative: 42-year-old female presents to the [facility] with complaints of right ear pain since yesterday. Children ear infections. Also positive for COVID and flu. has used in ear drops last night Location: right ear Duration: constant Relieving factors: nothing Discharge from ear: Reports no Treatment prior to arrival: eardrops Related Data Home Medications Medication Instructions Recorded Confirmed diphenhydramine HCl 25 mg capsule 25 mg PO DIRECTED PRN Allergy 10/22/19 08/10/21 (Benadryl) Symptoms montelukast 10 mg tablet 10 mg PO HS 08/19/20 08/10/21 (Singulair) fluticasone propionate 50 1 spray intranasal BID 08/12/22 08/12/22 mcg/actuation nasal spray,suspension Allergies Allergy/AdvReac Type Severity Reaction Status Date / Time No Known Allergies Allergy Verified 08/10/21 11:36 Review of Systems Review of Systems: All systems reviewed & are unremarkable except as noted in HPI and below Constitutional: Constitutional: Reports no additional constitutional complaints Eyes: Eyes: Reports no additional eye complaints ENT: Reports as per HPI and Reports otalgia (right) Cardiovascular: Cardiovascular: Reports no additional cardiovascular complaints, Denies chest pain and Denies dyspnea Respiratory: Respiratory: Reports no additional respiratory complaints, Denies chest congestion, Denies cough and Denies dyspnea Gastrointestinal: Gastrointestinal: Reports no additional gastrointestinal complaints, Denies abdominal pain, Denies nausea and Denies vomiting Musculoskeletal: Musculoskeletal: Reports no additional musculoskeletal complaints Integumentary/Breasts: Skin/Breast: Reports system reviewed and no additional complaints, except as docu Neurologic: Reports system reviewed and no additional complaints, except as documented Psychiatric: Psychiatric: Reports no additional psychiatric complaints Allergic/Immunologic: Allergic/Immunologic: Reports no additional allergic/immunologic complaints PMFSH Past Medical History Medical History Anxiety Depression GERD (gastroesophageal reflux disease) Hx of migraines Missed Surgical History Surgical History History of dilatation and curettage Social History Social History Smoking packs per day: 0.5 Smoking cigarettes per day: 10.0 Years smoked: 15 Smoking pack-years: 7.50 Smoking status: Former smoker Tobacco type: cigarettes Smoking end date: 09/03/08 Additional smoking assessment comments: STATES 1/2PK/DAY/15YRS QUIT 2009 Alcohol intake: current Drinks per week: 5 Substance use: never Substance use type: does not use Spiritual care concerns: No Comments At the time of my signature, I reviewed and agree with the nursing past medical, surgical, social, and family history. There is no relevant family history pertinent to the patient complaint. Exam Const: General: cooperative, comfortable, no acute distress, well developed, alert, ill appearing acutely (mild), average body habitus and well nourished Nutritional Appearance: average body habitus and well nourished Orientation/consciousness: patient oriented x3 Limitations: no limitations HENMT: Head: normal to inspection Ears: hearing grossly normal bilaterally, external ears normal, EAC's normal and TM abnormal bulging on the right and erythematous on the right Face/Nose/Sinus: Normal external nose present, Normal nares present, Normal nasal mucous membranes and turbinates present and normal facial exam Face and sinus: normal fac
== END 2022-08-12 11:48 | disposition home or self-care (01) ==
PROVIDERS: Emergency Provider Nurse Practitioner; PCP Nurse Practitioner Family
DX: H66.91 Otitis media, unspecified, right ear (principal); Z87.891 Personal history of nicotine dependence; K21.9 Gastro-esophageal reflux disease without esophagitis
CPT/HCPCS: 99213; G0463

== ENCOUNTER 2023-10-19 09:14 | Emergency (ER) | payer OTHER, SELFPAY ==
[2023-10-19 09:25] VITALS: BP 133/74; PULSE 84; RESP 16; TEMP 36.5; O2SAT 100
--- NOTE | 2023-10-19 09:26 | ED.URI ---
HPI - URI/Sore Throat General Chief Complaint: Upper Respiratory Infection Stated Complaint: bilateral ear pain,cough,nasal drainage Time Seen by Provider: 10/19/23 09:42 Source: patient and RN notes reviewed Mode of arrival: ambulatory Limitations: no limitations History of Present Illness HPI Narrative: 43-year-old female presents with concern for bilateral ear pain, worse on the right. She reports cough nasal drainage. Reports she has been taking multi symptom cold medicine without relief. Reports symptoms started about a week ago. MD elicited complaint: cough and other (ear pain) Related Data Home Medications Medication Instructions Recorded Confirmed montelukast 10 mg tablet 10 mg PO HS 08/19/20 08/10/21 (Singulair) hydroxyzine HCl 25 mg tablet mg 10/19/23 10/19/23 sumatriptan succinate 100 mg tablet mg PO 10/19/23 Allergies Allergy/AdvReac Type Severity Reaction Status Date / Time No Known Allergies Allergy Verified 10/19/23 09:24 Review of Systems Review of Systems: CONSTITUTIONAL: Reports malaise EYES: Denies visual changes, redness, or discharge. ENT: Reports rhinorrhea, congestion, otalgia CARDIOVASCULAR: Denies chest pain, palpitations, or edema. RESPIRATORY: Reports cough. Denies dyspnea. GASTROINTESTINAL: Denies abdominal pain, nausea, vomiting, diarrhea SKIN: Denies rash or itching. MUSCULOSKELETAL: Denies myalgia. NEUROLOGIC: Denies headache. All systems reviewed & are unremarkable except as noted in HPI and below PMFSH Past Medical History Medical History Anxiety Depression GERD (gastroesophageal reflux disease) Hx of migraines Missed Surgical History Surgical History History of dilatation and curettage Social History Social History Smoking packs per day: 0.5 Smoking cigarettes per day: 10.0 Years smoked: 15 Smoking pack-years: 7.50 Smoking status: Former smoker Tobacco type: cigarettes Smoking end date: 09/03/08 Additional smoking assessment comments: STATES 1/2PK/DAY/15YRS QUIT 2009 Alcohol intake: current Drinks per week: 5 Substance use: never Substance use type: does not use Living arrangements: with family Spiritual care concerns: No Comments At time of signature, agree with nursing past medical, surgical, social and family history. There is no relevant family history pertinent to the presenting complaint Exam Narrative: GENERAL: Nontoxic-appearing, well-nourished, and in no acute distress. HEAD: Normocephalic EYES: PERRLA, conjunctivae clear ENT: Nares clear. Mucous membranes moist. Left tM pearly valencia with dull light reflex, right TM erythematous and bulging; no tragal tenderness. Oropharynx not erythematous without lesions. Tonsils not enlarged and without exudate, no drooling, no hoarseness, no trismus, uvula midline. NECK: Supple. No lymphadenopathy CHEST: Clear to auscultation, breath sounds equal. No wheezing, rhonchi, rales, or stridor. No respiratory distress, speaks in full sentences. HEART: Regular rate and rhythm. No murmur heard. SKIN: Warm, dry, no rash. NEURO: Alert and oriented x3. PSYCH: Normal mood and affect Course Course Emergency Course: Patient is aware of diagnosis, understands and agrees to treatment plan. Anticipatory guidance given. Patient agrees to follow-up as directed and is aware of reasons to seek care at the emergency department. Portions of this record may have been created with voice recognition software Level of Care: Express Care Visit Vital Signs Vital signs: Vital Signs Temperature 97.7 F 10/19/23 09:25 Pulse Rate 84 10/19/23 09:25 Respiratory Rate 16 10/19/23 09:25 Blood Pressure 133/74 10/19/23 09:25 Pulse Oximetry 100 10/19/23 09:25 Oxygen Delivery Room Air 10/19/23 09:25 Temperature
== END 2023-10-19 09:43 | disposition home or self-care (01) ==
PROVIDERS: Emergency Provider Nurse Practitioner; PCP Nurse Practitioner Family
DX: H66.92 Otitis media, unspecified, left ear (principal); Z87.891 Personal history of nicotine dependence; K21.9 Gastro-esophageal reflux disease without esophagitis; F41.9 Anxiety disorder, unspecified
CPT/HCPCS: 99213; G0463

== ENCOUNTER 2025-04-08 16:03 | Emergency (ER) | payer OTHER, SELFPAY ==
--- NOTE | 2025-04-08 16:05 | ED_ITS ---
HPI - Extremity Injury (Lower) General Chief Complaint: Extremity Injury, Lower Stated Complaint: LT Knee Pain Time Seen by Provider: 04/08/25 16:05 Source: patient Mode of arrival: ambulatory Limitations: no limitations History of Present Illness HPI Narrative: Patient is a 45-year-old female that presents with left knee pain since yesterday. 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 Since then she has elevated, taken ibuprofen in alternate denies any. Patient has used a knee brace but is still painful to bear weight. Related Data Allergies Allergy/AdvReac Type Severity Reaction Status Date / Time No Known Allergies Allergy Verified 04/08/25 16:10 Review of Systems Review of Systems: All systems reviewed & are unremarkable except as noted in HPI and below Constitutional: Constitutional: Denies body ache(s), Denies chills, Denies fatigue, Denies fever(s), Denies headache(s), Denies malaise and Denies weakness Eyes: Eyes: Denies blurry vision, Denies irritation and Denies loss of vision ENT: Denies otalgia, Denies headache(s), Denies nasal discharge, Denies sinus pain and Denies sore throat Cardiovascular: Cardiovascular: Denies chest pain, Denies irregular heart rhythm and Denies dyspnea Respiratory: Respiratory: Denies dyspnea Gastrointestinal: Gastrointestinal: Denies abdominal pain, Denies melena, Denies hematochezia, Denies diarrhea, Denies nausea and Denies vomiting Musculoskeletal: Musculoskeletal: Denies back pain, Denies myalgias, Reports arthralgias and Reports joint swelling Integumentary/Breasts: Skin/Breast: Denies pruritus and Denies rash Neurologic: Denies headache(s), Denies loss of vision and Denies weakness Psychiatric: Psychiatric: Reports no additional psychiatric complaints Endocrine: Endocrine: Denies fatigue PMFSH Past Medical History Medical History Recurrent cold sores Allergies History of recurrent miscarriages Depression Missed GERD (gastroesophageal reflux disease) Hx of migraines Anxiety Surgical History Surgical History Hx of appendectomy H/O: hysterectomy History of dilatation and curettage Social History Social History Smoking packs per day: 0.5 Smoking cigarettes per day: 10.0 Years smoked: 15 Smoking pack-years: 7.50 Smoking status: Former smoker Tobacco type: cigarettes Smoking end date: 09/03/08 Additional smoking assessment comments: STATES 1/2PK/DAY/15YRS QUIT 2009 Alcohol intake: current Drinks per week: 5 Substance use: never Substance use type: does not use Do You Feel Safe in your Home?: Yes Lack of Transportation: No Lack of Food: Never True Current Housing: I Have Housing Concerned About Future Housing: No Difficulty Paying Gas/Electric Bills: No Difficulty Paying for Meds: No Currently Unemployed: No Education: Don't Know Difficulty w/ Childcare or Family Care: No Living arrangements: with family Occupation/Education: occupation 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 There is no relevant family history pertinent to the presenting complaint. Exam Const: General: cooperative, healthy appearing, comfortable, no acute distress and well nourished Nutritional Appearance: well nourished Orientation/consciousness: patient oriented x3 Limitations: no limitations HENMT: Head: normal to inspection, normocephalic and atraumatic Ears: hearing grossly normal bilaterally and external ears normal Face/Nose/Sinus: Normal external nose present, normal facial exam and face symmetric Face and sinus: normal facial exam and face symmetric Mouth: Yes lip normal Eyes: General: appearance normal, both eyes and all related structures Alignment and Position: alignment normal and position normal Periorbital: periorbital findings normal Eyelids: eyelids normal Pupils: Equal, round and reactive pupils present EOM: EOMs intact bilaterally Neck: Neck: normal visual inspection, full ROM and supple Chest: Chest palpation & inspection: normal inspection of the chest Resp: Effort & Inspection: normal respiratory effort and able to speak in complete sentences Auscultation: clear to auscultation bilaterally Cardio: Rate: regular rate Rhythm: regular rhythm Heart sounds: S1 normal heart sound present and S2 normal heart sound present GI: Inspection: normal to inspection Skin: General skin exam: normal color and no rashes or lesions noted Neuro: General: patient oriented x3 and moves all extremities Cranial nerves: Yes Equal, round and reactive pupils present Speech: normal speech Gait exam (Neuro): Normal gait present Extrem: General: normal to inspection, full ROM and no edema Left lower extremity: hip/thigh Details: normal to inspection and normal ROM, knee Details: tenderness Location: of the infrapatellar area, swelling Location: of the infrapatellar area, normal ROM and knee ligament exam normal Details: anterior drawer test normal, posterior drawer test normal, valgus stress test normal and varus stress test normal, ankle Details: normal to inspection and normal ROM and foot Details: normal capillary refill, normal to inspection, toes with normal ROM and vascular exam Details: dorsalis pedis pulse present Psych: Appearance: grossly normal and well kempt Mental Status: mental status grossly normal Speech and movement: Normal speech and movement present Affect: normal affect Attitude: cooperative Thought process: Normal thought process present Course Course Emergency Course: Patient is aware of diagnosis, understands and agrees to treatment plan. Anticipatory guidance given. Patient agrees to follow-up as directed and is aware of reasons to seek care at the emergency department. Portions of this record may have been created with voice recognition software Level of Care: Express Care Visit Vital Signs Vital signs: Reviewed MDM - Extremity Injury (Lower) MDM Narrative Medical decision making narrative: Patient is able to bear weight and ambulate with mild pain. No surface of trauma or obvious effusion. No overlying erythema or warmth. The L knee is without obvious asymmetry or deformity when comparing to the R. Fully extended knee, internal and external rotation. Tender to palpate of infrapatellar, + effusion. Nontender over the medial or lateral joint line, or medial or lateral tibial plateaus. Nontender over the proximal fibular head. Nontender, fullness, or mass of the popliteal fossa. NO quadriceps tenderness. No laxity of the ACL, PCL, MCL, LCL. Distal motor and neurovascular status intact. Pt well hydrated appearing, in no respiratory distress, hemodynamically stable. Recommend supportive care. The patient is stable at time of discharge the clinical impression was discussed and the patient was given the opportunity to ask questions, which were addressed as completely as possible given the information available at present. Anticipatory guidance and return to care precautions were discussed and the importance of primary care follow-up was stressed and encouraged. The patient voiced understanding of the plan, indications to return, and the need for follow-up. Exam findings show no acute concerns or changes Patient is appropriate for outpatient treatment and follow-up. Differential Diagnosis Differential diagnosis: Likely acute internal derangement of knee and other (Knee effusion, knee strain) Medical Records Attestation: I reviewed the patient's medical records. Discharge Plan Discharge Clinical Impression: Knee strain Qualifiers: Encounter type: initial encounter Laterality: left Qualified Code(s): S86.912A - Strain of unspecified muscle(s) and tendon(s) at lower leg level, left leg, initial encounter Patient Disposition: Home Condition: Stable Instructions: Knee Sprain (ED) Additional Instructions: Minimize activities that aggravate the condition The RICE protocol. Follow the RICE protocol as soon as possible after your injury: Rest your ankle by not walking on it. Ice should be immediately applied to keep the swelling down. It can be used for 20 to 30 minutes, three or four times daily. Do not apply ice directly to your skin. Compression dressings, bandages or cortez-wraps will immobilize and support your injured knee. Elevate your knee above the level of your heart as often as possible during the first 48 hours. Medication: Nonsteroidal anti-inflammatory drugs (NSAIDs) such as ibuprofen and naproxen can help control pain and swelling. Because they improve function by both reducing swelling and controlling pain, they are a better option for mild s prains than narcotic pain medicines. Please schedule a follow-up visit with your personal physician for further evaluation and treatment within 1week OR If your symptoms persist, change or worsen significantly before you can contact your personal physician then please, without delay, go to the emergency department for further evaluation. Patient Language: South Korean Prescriptions: New prednisone 20 mg tablet 40 mg PO DAILY 5 Days Qty: 10 0RF baclofen 10 mg tablet 10 mg PO TID 5 Days Qty: 15 0RF No Action montelukast [Singulair] 10 mg tablet 10 mg PO QHS Qty: 90 3RF hydroxyzine HCl 25 mg tablet 25 mg PO BID PRN (Reason: anxiety) Qty: 180 1RF Nurtec ODT 75 mg tablet,disintegrating 75 mg PO .every other day Qty: 45 1RF Follow-up/Referrals: Светлана Barrera APRN [Primary Care Provider] - 3 Days Time of Disposition: 16:19
--- OUTSIDE RECORDS SUMMARY | 2025-04-08 16:06 | XMS_ITS | Clinical Summary ---
Author Organization [facility] Address [address] [place] [address] Care Team Providers Care Experience Design Director Name Role Phone Adriana Almaraz MD Primary Care Provider [phone] Source Comments [facility],non-owned Affiliates and Associated Physician Practices is amultiple site organization consisting of ambulatory clinics and hospital sitesin [place], [place], [place] and [place]. This disclosure is being madepursuant to the Care Everywhere program and may not contain all information available regarding this patient. Last updated 18.[facility] Allergies No known active allergies Medications * Be aware that medications may not be up to date on this document. Alwaysverify current medications with the patient. hydrocodone-cortez taminophen (VICODIN) 5-500 MG tablet Take 1 Tab by mouth every 4 hours as needed for Pain. 20 Tab 0 2 Active Additional Information Patient not taking.Reported on 12/16/2016 propranolol (INDERAL) 10 MG tablet Take 10 mg by mouth 2 times daily. Active docusate sodium (COLACE) 100 MG capsule Take 100 mg by mouth once daily. Active Vit-Fe Fumarate-FA ( VITAMIN WITH IRON) tablet Take 1 Tab by mouth once daily. Active Active Problems Problem Noted Date Diagnosed Date History of delivery 12/16/2016 Overview (12/16/2016): 35 weeks Supervision of other high-risk 012 Overview (12/20/2016): Datinwk ultrasound O+/I/-/-, HIV negative Negative sequential screen Amnio: 46, XX Normal anatomy US Growth nml 2128g at 32w (62nd percentile) GCT: 114 GBS neg 12/16/16 Migraine headache Overview (02/29/2012): Controlled on propranalol and vicodin Resolved Problems Problem Noted Date Diagnosed Date Resolved Date Hyperemesis 02/29/2012 12/16/2016 Overview (02/29/2012): Now resolved Carpal tunnel syndrome 12/16 Immunizations Immunization Administration Dates Next Due TDAP (7yrs+) 12/18/2016 Social History Tobacco Use Types Packs/Day Years Used Date Smoking Tobacco: Never Alcohol Use Standard Drinks/Week Comments No 0 (1 standard drink = 0.6 oz pur e alcohol) Comments No Sex and Gender Information Value Date Recorded Sex Assigned at Not on file Legal Sex Female 1:49 PM [employer] Gender Identity Not on file Sexual Orientation Not on file Last Filed Vital Signs Vital Sign Reading Time Taken Comments Blood Pressure 120/70 12/18/2016 7:50 AM CDT Pulse 82 12/18/2016 7:50 AM CDT Temperature 36.4 C (97.6 F) 12/18/2016 7:50 AM CDT Respiratory Rate 18 12/18/2016 7:50 AM CDT Oxygen Saturation 98% 12/18/2016 7:50 AM CDT Inhaled Oxygen Concentration - - Weight 81.6 kg (180 lb) 12/17/2016 8:15 AM CDT Height 162.6 cm (5' 4) 12/17/2016 8:15 AM CDT Body Mass Index 30.9 12/17/2016 8:15 AM CDT Plan of Treatment Health Maintenance Due Date Last Done Comments COLOGUARD (AGES 45-75) - COL ON CA SCREENING 1978 COLON MONITORING 1978 COLONOSCOPY - COLON CA SCREENING 1978 CT COLONOGRAPHY - COLON CA SCREENING 1978 Colorectal Cancer Screening 1978 FIT - COLON CA SCREENING 1978 FLEX SIG - COLON CA SCREENING 1978 LIPID TESTING 1978 MAMMOGRAM 1978 HIV SCREENING 1993 HEPATITIS C SCREENING 01/18/1996 HEPATITIS B VACCINE (1 of 3 - 19+ 3-dose series) 1997 COVID-19 VACCINE ( - 2023-2 5 season) 2024 DEPRESSION SCREENING 09/03/2024 INFLUENZA VACCINE (#1) 2025 DTAP/TDAP/TD VACCINES (2 - T d or Tdap) 12/18/2026 12/18/2016 ZOSTER VACCINE (1 of 2) 01/23/2028 HIB VACCINE Aged Out No longer eligi ble based on patient's age to complete this topic HPV VACCINE Aged Out No longer eligi ble based on patient's age to complete this topic MENINGOCOCCAL (Group B) VACC INE SHARED DECISION-MAKING Aged Out No longer eligibl e based on patient's age to complete this topic MENINGOCOCCAL GROUPS A/C/Y/W VACCINE Aged Out No longer eligible b ased on patient's age to complete this topic PNEUMOCOCCAL VACCINE Aged Out No long er eligible based on patient's age to complete this topic [facility] [place] [place] Subscriber Plan / Payer (Ef fective 2011-Present) Name:Juanita Reyes Relation to Subscriber:Spouse Name:AMYANGE Date of :1978 (Home) Address: [place] [address] Payer ID:Not on file Type:O [address] Advance Directives * Full Code (Latest Code Status on File) Date Activated Date Inactivated Comments 12/16/2016 11:12 PM 12/18/2016 12:15 PM Care Teams Experience Design Director Relationship Specialty Start Date End Date Adriana Almaraz MD [address] [place] [phone] PCP - General 03/31/12
[2025-04-08 16:07] VITALS: BP 160/82; PULSE 89; RESP 16; TEMP 36.6; O2SAT 100
== END 2025-04-08 16:22 | disposition home or self-care (01) ==
PROVIDERS: Emergency Provider Nurse Practitioner Family; PCP Nurse Practitioner Family
DX: S86.912A Strain of unspecified muscle(s) and tendon(s) at lower leg level, left leg, initial encounter (principal); W18.40XA Slipping, tripping and stumbling without falling, unspecified, initial encounter; K21.9 Gastro-esophageal reflux disease without esophagitis; F41.9 Anxiety disorder, unspecified
CPT/HCPCS: 99213; G0463

== ENCOUNTER 2025-06-22 09:14 | Emergency (ER) | payer OTHER, SELFPAY ==
--- NOTE | ~2025-06-22 | XR_ITS ---
Examination: [id number] Clinical History: paul anterior lower rib pain r/t fall Comparison: None Technique: Frontal chest, or Findings: Heart size normal. Lungs clear. Fracture anterior right rib 6. Fractures anterior left ribs 6 and 7. IMPRESSION: 1. No acute cardiopulmonary findings given portable technique. 2. Fracture anterior right rib 6. 3. Fractures anterior left ribs 6 and 7. Reviewed, dictated and finalized at location R.
--- NOTE | 2025-06-22 09:16 | ED_ITS ---
HPI - Fall General Chief Complaint: Wound/Laceration Stated Complaint: Fall Time Seen by Provider: 06/22/25 09:16 Source: patient Mode of arrival: ambulatory Limitations: no limitations History of Present Illness HPI Narrative: Juanita is a 45-year-old female patient presenting to the clinic today with complaints of fall 4 days ago. She reports she fell flat on her chest. Is having and posterior bilateral lower rib pain with pain with inspiration. Is unable to take deep breaths due to pain. States that her pain is a 2/10 when resting an 8/10 with movement. Feels as though she cannot take a deep breath in. Denies hitting her head or any loss of consciousness. Has been taking ibuprofen/naproxen for pain. States the ibuprofen was not helping with naproxen seems to be helping some. Related Data Home Medications ?Medication ?Instructions ?Recorded ?Confirmed ?Last Taken ?Type sumatriptan succinate 25 mg tablet 100 mg PO .COMPLEX 05/20/25 Unknown History Allergies Allergy/AdvReac Type Severity Reaction Status Date / Time No Known Allergies Allergy Verified 06/22/25 09:31 Review of Systems Review of Systems: Pertinent positives per HPI. Patient denies any fever, chills, rash, headache, visual changes, dizziness, cough, runny nose, sore throat, chest pain, palpitations, nausea, vomiting, diarrhea, constipation, abdominal pain, or any urinary issues. PMFSH Past Medical History Medical History Recurrent cold sores Allergies History of recurrent miscarriages Depression Tried zoloft, Wellbutrin, Lexapro, prozac, Duloxetine. Hasn't been on amitriptyline, trazodone, or venlafaxine Missed GERD (gastroesophageal reflux disease) Hx of migraines Anxiety Tried zoloft, Wellbutrin, Lexapro, prozac, Duloxetine. Hasn't been on amitriptyline, trazodone, or venlafaxine. Surgical History Surgical History Hx of appendectomy H/O: hysterectomy History of dilatation and curettage Social History Social History Social History: 9/17/25 Patient declined SDOH Smoking packs per day: 0.5 Smoking cigarettes per day: 10.0 Years smoked: 15 Smoking pack-years: 7.50 Smoking status: Former smoker Tobacco type: cigarettes Smoking end date: 09/03/08 Additional smoking assessment comments: STATES 1/2PK/DAY/15YRS QUIT 2009 Alcohol intake: current Drinks per week: 5 Substance use: never Substance use type: does not use Do You Feel Safe in your Home?: Yes Lack of Transportation: No Lack of Food: Never True Current Housing: I Have Housing Concerned About Future Housing: No Difficulty Paying Gas/Electric Bills: No Difficulty Paying for Meds: No Currently Unemployed: No Education: Don't Know Difficulty w/ Childcare or Family Care: No Living arrangements: with family Occupation/Education: occupation 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 There is no relevant family history pertinent to the patient complaint. Exam Narrative: General: Well-developed, well nourished, in no apparent distress Head: Normocephalic, atraumatic. Cardio: Regular rate and rhythm, s1 and s2 normal, no murmur appreciated. Resp: Diminished in the bases otherwise clear, no rhonchi, rales, wheezing or rubs. Trachea midline Musculoskeletal: No deformity, even rise and fall of the chest wall with respirations, no bruising or swelling noted to the chest wall/rib, tender to palpation over the bilateral anterior lower ribs, non-tender to palpation over the cervical, thoracic, or lumbar spine, grossly normal range of motion, muscle strength strong and equal, peripheral pulse strong, no edema, no cyanosis, normal gait and station Course Course Emergency Course: Portions of this record may have been created with voice recognition software. Level of Care: Express Care Visit Vital Signs Vital signs: Vital Signs Temperature 37.1 C 06/22/25 09:25 Pulse Rate 87 06/22/25 09:25 Respiratory Rate 16 06/22/25 09:25 Blood Pressure 148/94 H 06/22/25 09:25 Pulse Oximetry 100 06/22/25 09:25 Temperature 37.1 C 06/22/25 09:25 Pulse Rate 87 06/22/25 09:25 Respiratory Rate 16 06/22/25 09:25 Blood Pressure 148/94 H 06/22/25 09:25 Pulse Oximetry 100 06/22/25 09:25 Vital signs reviewed MDM - Fall MDM Narrative Medical decision making narrative: At the time of visit patient is resting comfortably on the exam table. Patient appears to be nontoxic. Complaints of fall 4 days ago. She reports she fell flat on her chest. Is having and posterior bilateral lower rib pain with pain with inspiration. Is unable to take deep breaths due to pain. States that her pain is a 2/10 when resting an 8/10 with movement. Feels as though she cannot take a deep breath in. Denies hitting her head or any loss of consciousness. Has been taking ibuprofen/naproxen for pain. States the ibuprofen was not helping with naproxen seems to be helping some. On exam patient's lung sounds are clear but diminished in the bases, tenderness to palpation over the lower anterior bilateral ribs, bruising or swelling noted, even rise and fall of the chest wall with respirations, trachea midline. X-rays the bilateral ribs with PA chest was ordered. Diagnostics: X-ray shows no acute cardiopulmonary process, no pneumothorax, multiple rib fractures-right anterior 6th rib, left anterior 6th and 7th ribs Plan: I suspect patient has multiple rib fractures. Prescription for tramadol was sent to the pharmacy for moderate to severe pain. Incentive spirometer was ordered and given to the patient. Unfortunately I could not send the prescription electronically due to EMR malfunction/extended loading times- so a printed prescription was given to the patient. Or nail was given. Supportive measures were discussed with the patient and they voiced understanding discharge instructions and agrees to treatment plan. Return precautions reviewed Differential Diagnosis Differential diagnosis: Likely other (Rib fracture, rib contusion, chest wall contusion, chest wall pain, pneumothorax) Discharge Plan Discharge Clinical Impression: Multiple rib fractures Patient Disposition: Home Condition: Stable Instructions: Antibiotic Form, How to Use an Incentive Spirometer (ED), Rib Fracture (ED) Additional Instructions: X-ray show multiple rib fractures-fracture of the anterior right 6th rib and fractures of the anterior left 6th and 7th ribs Take any prescription medication only as prescribed-tramadol May take tramadol for moderate to severe pain May take Tylenol/naproxen as directed for pain. Use incentive spirometer every 2-3 hours while awake May splint your ribs when coughing, sneezing, or deep breathing to help alleviat e pain May use heat or ice to the affected area May use blue emu, lidocaine patches, or asper cream to affected area- do not apply heat or ice directly over cream- can cause burn. Follow up with your PCP in 5-7 days if symptom persist. Patient Language: Comoran Prescriptions: New tramadol 50 mg tablet 50 mg PO Q6H PRN (Reason: pain) 3 Days Qty: 12 0RF No Action sumatriptan succinate 25 mg tablet 100 mg PO .COMPLEX Rx Instructions: 100 mg orally; Nurtec ODT 75 mg tablet,disintegrating 75 mg PO .every other day Qty: 45 1RF hydroxyzine HCl 25 mg tablet 25 mg PO BID PRN (Reason: anxiety) Qty: 180 1RF montelukast [Singulair] 10 mg tablet 10 mg PO QHS Qty: 90 3RF venlafaxine 75 mg capsule,extended release 24hr 75 mg PO DAILY Qty: 90 1RF Follow-up/Referrals: Светлана Barrera APRN [Primary Care Provider, Family Practice] Stand Alone Forms: Work/School Release IP Time of Disposition: 10:10 Quality NIHSS Nursing Documentation ED NIHSS nursing documentation: reviewed/agree
[2025-06-22 09:25] VITALS: BP 148/94; PULSE 87; RESP 16; TEMP 37.1; O2SAT 100
== END 2025-06-22 10:26 | disposition home or self-care (01) ==
PROVIDERS: Emergency Provider Nurse Practitioner Family; PCP Nurse Practitioner Family
DX: S22.49XA Multiple fractures of ribs, unspecified side, initial encounter for closed fracture (principal); W18.30XA Fall on same level, unspecified, initial encounter; K21.9 Gastro-esophageal reflux disease without esophagitis; F41.8 Other specified anxiety disorders; Z87.891 Personal history of nicotine dependence
CPT/HCPCS: 71111; 99213; G0463